=== PATIENT | female | born 1965 | race Caucasian/White ===

== ENCOUNTER 2019-05-03 08:38 | Day surgery (SDC) | payer OTHER ==
[2019-05-03 09:13] LABS: MPV 7.9 fL (7.6-11.3)
[2019-05-03 09:20] LABS: Protime INR 0.92
[2019-05-03 09:50] LABS: Platelet Estimate ADEQ
[2019-05-03] MEDS ORDERED: HYDROCODONE/APAP 7.5/325 MG TAB ONE (11:55)
--- NOTE | 2019-05-03 12:08 | RAD REPORT ---
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 FINDINGS: Bilateral scoliosis rods are in place. Superior aspect of the rods is at the T4 level. Alex s continue inferiorly to the L4-5 level. No hardware fracture. Patient has a left convex rotoscoliosi s of the lumbar spine. Bones appear osteopenic for the patient's age. Lumbar bodies are normal in height. L4 body shows 4-5 mm of anterior subluxation. L4-5 disc space is narrowed with degenerative gas in the disc space. No o ther subluxation. No additional lateral subluxation abnormalities. L5-S1 disc space is relatively nicole row though this can occur normally. The mid and upper lumbar disc levels are normal in height. No compression fracture. No lytic, sclerotic or expansile change. Heterotopic bone is present along t he mid and lower lumbar spine adjacent to the scoliosis alex fixation hooks. Prominent degenerative change present at the L5-S1 facet joints. Mild SI joint degenerative changes are present. On flexion imaging the L4 body does not appear to change positioning when compared to neutral. On ext ension imaging there is greater anterior subluxation of L4 measuring approximately 6- 7 mm. IMPRESSION: Left convex lumbar rotoscoliosis is present with Montalvo rods in place spanning upper thoracic spine to the L4-5 level. Significant L4-5 disc space narrowing with sclerotic changes to the endplates. In neutral positioning there is approximately 4-5 mm of anterior subluxation of L4. On flexion imaging L4 position is stable. On extension this subluxation increases to 6-7 mm. Bones appear osteopenic for age. Prominent degenerative change at the L5-S1 facet joints. Lumbar myelogram was performed at the same date and findings are separately detailed.
--- NOTE | 2019-05-03 12:58 | RAD REPORT ---
EXAM DESCRIPTION: CT - Myelogram C Spine - 05/03/2019 11:35 am CLINICAL HISTORY: Cervicalgia, neck pain, low back pain, bilateral lower extremity radiculopathy COMPARISON: Lumbar films same date TECHNIQUE: Patient presents for lumbar and cervical myelogram and CT imaging. The patient indicated no contraindicated medication and no drug allergy. The myelogram procedure, risks and alternatives were discussed with the patient in detail. After answ ering all questions both oral and written consent were obtained. The patient was placed in an oblique prone position on the fluoroscopic table. Preliminary imaging sh owed a left convex rotoscoliosis in the lumbar spine. Scoliosis rods are in place extending to the L4 -5 level. The patient was positioned to allow access to the thecal sac. Skin was prepped and draped in the usual sterile fashion. Skin and deeper tissues were anesthetized w ith 1% lidocaine. Under fluoroscopic guidance a 22 gauge spinal needle was advanced into the thecal s ac at the L3 level. Intrathecal placement was confirmed. Approximately 10 mL of Isovue-M 200 contrast material was instilled in the thecal sac. The needle was withdrawn and a sterile bandage placed to t he puncture site. Multiple lumbar myelogram images were obtained. The patient was transferred to the CT suite for pending imaging of the lumbar and cervical spine. Jeffrey ndelenburg positioning utilized to transfer the contrast from the lumbar spine to the cervical spine. The lumbar myelogram imaging findings are incorporated into the CT lumbar spine report. Exam was completed without complication. The patient indicated she was in diffuse pain which was not substantially different from her baseline pain pattern. The patient will be monitored in same-day [facility] after completion of the CT imaging. Fluoro time was 5.3 minutes. There were 7 fluoroscopic spot images obtained. Four additional fluoroscopic screening images were re tained. IMPRESSION: 1. Lumbar myelogram procedure was performed as detailed. There were no immediate complic ations. 2. The patient was transferred to the CT suite for cross-sectional imaging of the lumbar and cervical spine. The patient will be monitored in the same day surgical area after completion of a CT imaging. 3. Lumbar myelogram images were obtained and findings are incorporated in the lumbar spine report. No cervical myelogram fluoroscopic images obtained.
--- NOTE | 2019-05-03 14:35 | RAD REPORT ---
EXAM DESCRIPTION: RAD - Myelography Lumbar CLINICAL HISTORY: Cervicalgia, neck pain, low back pain, bilateral lower extremity radiculopathy COMPARISON: Lumbar films same date TECHNIQUE: Patient presents for lumbar and cervical myelogram and CT imaging. The patient indicated no contraindicated medication and no drug allergy. The myelogram procedure, risks and alternatives were discussed with the patient in detail. After answering all questions both oral and written consent were obtained. The patient was placed in an oblique prone position on the fluoroscopic table. Preliminary imaging showed a left convex rotoscoliosis in the lumbar spine. Scoliosis rods are in place extending to the L4-5 level. The patient was positioned to allow access to the thecal sac. Skin was prepped and draped in the usual sterile fashion. Skin and deeper tissues were anesthetized with 1% lidocaine. Under fluoroscopic guidance a 22 gauge spinal needle was advanced into the thecal sac at the L3 level. Intrathecal placement was confirmed. Approximately 10 mL of Isovue-M 200 contrast material was instilled in the thecal sac. The needle was withdrawn and a sterile bandage placed to the puncture site. Multiple lumbar myelogram images were obtained. The patient was transferred to the CT suite for pending imaging of the lumbar and cervical spine. Trendelenburg positioning utilized to transfer the contrast from the lumbar spine to the cervical spine. The lumbar myelogram imaging findings are incorporated into the CT lumbar spine report. Exam was completed without complication. The patient indicated she was in diffuse pain which was not substantially different from her baseline pain pattern. The patient will be monitored in same-day surgery after completion of the CT imaging. Fluoro time was 5.3 minutes. There were 7 fluoroscopic spot images obtained. Four additional fluoroscopic screening images were retained. IMPRESSION: 1. Lumbar myelogram procedure was performed as detailed. There were no immediate complications. 2. The patient was transferred to the CT suite for cross-sectional imaging of the lumbar and cervical spine. The patient will be monitored in the same day surgical area after completion of a CT imaging. 3. Lumbar myelogram images were obtained and findings are incorporated in the lumbar spine report. No cervical myelogram fluoroscopic images obtained.
--- NOTE | 2019-05-04 13:31 | RAD REPORT ---
EXAM DESCRIPTION: CT - Spine Lumbar Wo Con - 05/03/2019 11:58 am CLINICAL HISTORY: Back pain, scoliosis fixed with rosa placement, bilateral lower extremity radiculop athy COMPARISON: Lumbar plain films same date, myelogram images same date TECHNIQUE: Thin section axial 2 mm thick imaging of the lumbar spine was performed. Sagittal and co dorinda reconstruction images were generated and reviewed. Angled axial images were obtained through ea ch disc level using O-mar metal artifact reducing technique. All CT scans are performed using dose optimization technique as appropriate and may include automated exposure control or mA/KV adjustment according to patient size. FINDINGS: Lumbar bodies are normal in height. No compression fracture. No pathologic bone process se en. T12- L3 bodies are osteopenic. The patient has significant left convex scoliotic curvature with t he apex at L1. The patient has scoliosis rods in place along the entire length of the lower thoracic spine and lumbar spine to the L4 level. No hardware fracture. There is heterotopic bone and fusion ch anges along the posterior elements and facet joints. There is some mineralization along the periphery of the disc spaces from T11-12 through L2-3 at least partially fusing these disc levels. Conus terminates at the inferior aspect of T12. No clumping or thickening of the cauda equina identif ied. No arachnoiditis findings suspected. T11-12: No significant finding. T12-L1: No significant finding L1-2 level: No significant finding L2-3 level: No significant finding L3-4 level: No loss in disc height. No herniation or significant disc bulge. This level does not have the same degree of mineralization seen more superiorly. Facet joint and posterior element hypertroph y and fusion changes are present at this level. No canal or foramen stenosis. L4-5 level: Near complete loss in disc height at this level with degenerative gas in the disc space. Numerous degenerative cystic changes are present deep to the endplates. There is approximately 6 mm o f anterior subluxation of L4 relative to L5. Severe facet joint degenerative change present at this l evel without the bony union seen more superiorly. Ligamentous thickening changes are present. Pseudo bulging of disc material is present across the disc space. Critical foraminal stenosis is not seen. T here is near complete effacement of the thecal sac with near complete loss of the contrast column. Ce ntral spinal stenosis down to 5-6 mm noted. L5-S1. No central spinal stenosis or significant foraminal stenosis seen. There is significant degene rative disc disease with substantial loss in height and prominent endplate degenerative change. Left foraminal endplate spurring changes are present. Midline canal diameter is 7-8 mm. IMPRESSION: 1. Severe degenerative changes at the L4-5 level as detailed. There is critical central spinal stenosis down to 5-6 mm from pseudo bulging of disc material posterior ligamentous thickening and very advanced common non fused facet joint hypertrophic degenerative change. 2. Advanced L5-S1 degenerative disc disease with central spinal stenosis to 7-8 mm. 3. The remaining lumbar levels show no significant finding. No canal or foramen stenosis. 4. Scoliosis rods than the lumbar spine down to the L4 level. Hypertrophic bone changes and facet killian nt fusion changes are present from the scoliosis hardware spanning down to the L3-4 disc level. 5. No arachnoiditis findings.
--- NOTE | 2019-05-05 09:00 | RAD REPORT ---
EXAM DESCRIPTION: CT - Myelogram C Spine - 05/04/2019 7:12 am CLINICAL HISTORY: Cervicalgia, lower extremity weakness, upper extremity radiculopathy COMPARISON: Cervical spine plain films April 2017 TECHNIQUE: Axial 2 millimeter thick images of the cervical spine were obtained. Sagittal and coronal reformatted images were generated and reviewed. Intrathecal contrast material was placed via lumbar myelogram procedure. Patient had a concurrent lumbar myelogram and postmyelogram lumbar CT study. Tho se examinations are separately reported. The CT scan was performed using dose optimization techniques as appropriate to a performed exam incl uding one or more of the following: Automated exposure control, adjustment of the mA and/or kV accord ing to patient size (this includes techniques or standardized protocols for targeted exams where dose is matched to indication/reason for exam) and use of iterative reconstruction technique. FINDINGS: Cervical bodies are normal in height and alignment. No fracture or acute vertebral body fi nding. C4-5 disc space narrowing present. Disc findings are subsequently detailed. There is no tonsil lar ectopia present. No acute or suspicious finding at the skullbase or C1 level. Patient has minimal degenerative changes and spurring along the superior margin anterior arch C1. Soft tissue assessment is limited on this examination. Patient has a large jugular vein on the right. No right-sided thyroid tissue is identifiable. Focal metallic density in the right thyroid bed may b e surgical clips. Right submandibular gland is atrophic or absent. Parotid glands are also atrophic o r mostly fatty replaced. C2-3 level: Minimal bulging of disc material in the midline or mild thickening of the posterior longi tudinal ligament. This partially attenuates the anterior subarachnoid space but does not contact the cord. Midline canal diameter is 12 mm. No foraminal encroachment. C3-4 level: No herniation or significant disc bulge. Partial attenuation of the anterior subarachnoid space noted from posterior longitudinal ligament thickening or possibly minimal disc bulge. No conta ct of the cord. Midline canal diameter is 12 mm. No foraminal encroachment. C4-5 level: Disc bulge is present across the central canal. This disc bulge is partially calcified. A nterior subarachnoid space is partially attenuated. No flattening of the cord. Midline canal diameter is 12 mm. No significant foraminal encroachment. Mild facet degenerative change noted on the left. C5-6 level: Mild disc bulge or posterior longitudinal ligament thickening seen partially attenuating the anterior subarachnoid space. No flattening of the cord. Midline canal diameter is 13 mm. No signi ficant foraminal encroachment identifiable. No significant facet degenerative change. C6-7 level: No herniation or significant disc bulge. Midline canal diameter is [address] enosis. C7-T1 level: No significant finding. IMPRESSION: No disc herniation is present. There is no central spinal stenosis or foraminal encroach ment identifiable. Patient has partially calcified disc bulge at C4-5 only partially attenuating the anterior subarachno id space. This does not contact or flatten the cord. Several levels show either very minimal disc bulge or posterior longitudinal ligament thickening. The se changes result in partial attenuation of the subarachnoid space anteriorly but no contact or zahraa ening of the cord and no spinal stenosis. The right thyroid lobe appears to be absent in the patient has a large right jugular vein is a normal variant. Right submandibular gland also appears to be absent or atrophic with bilateral atrophic or fatty infiltrated parotid glands. CT cervical spine examination does not provide for optimal CT soft tissue neck assessment.
== END 2019-05-03 14:10 | disposition home or self-care (01) ==
LOC: DS 08:38
PROVIDERS: ATTEND Orthopaedic Surgery
DX: M54.12 Radiculopathy, cervical region (principal); M43.16 Spondylolisthesis, lumbar region
CPT/HCPCS: 36415; 62302; 62304; 72114; 72126; 72131; 85049; 85610; 85730

== ENCOUNTER 2022-03-08 16:26 | Observation (INO) | payer OTHER ==
--- OUTSIDE RECORDS SUMMARY | 2022-03-08 16:28 | XMS REPORT | Continuity of Care Document ---
:1965 Author Organization [facility] t Address [address] [place] [address] [place] [id number] Care Team Providers Name Role Phone BRIANNE Primary Care Physician Unavailable GABINO HALL Attending Clinician Unavailable Payers Payer Name Policy Type Policy Number Effective Date Expiration Date Pratik PETERS O [id number] 2000 00:00:00 Problems This patient has no known problems. Allergies, Adverse Reactions, Alerts This patient has no known allergies or adverse reactions. Medications This patient has no known medications. Vital Signs Vital Name Observation Time Observation Value Comments Source HEIGHT 2021-03-09 15:34:26 159 cm WEIGHT 2021-03-09 15:34:26 60.6 kg Procedures This patient has no known procedures. Encounters Start End Encounter Admission Attending Care Care Encounter Source Date/Time Date/Time Type Type Clinicians Facility Department ID 2021-03-09 2021-03-09 Outpatient CYNDIE BELCHER [facility], [facility] [id number] 14:26:02 23:59:00 Gerardo o agnes 2021-03-09 2021-03-09 Outpatient CYNDIE BELCHER [facility], [facility] [id number] 15:14:38 15:49:06 Gerardo o agnes 2021-03-09 2021-03-09 Outpatient CYNDIE BELCHER [facility], MDA [id number] 13:30:00 14:25:00 Gerardo o agnes 2021-03-05 2021-03-05 Outpatient CYNDIE BELCHER [facility], MDA [id number] 16:27:51 16:27:51 Gerardo o agnes 2021-03-05 2021-03-05 Outpatient CYNDIE BELCHER [facility], MDA [id number] 16:00:26 16:00:26 Gerardo o n Results This patient has no known results.
[2022-03-08] MEDS ORDERED: ASPIRIN 81 MG CHEWABLE TABLET ONE (17:27)
[2022-03-08 17:30] LABS: Absolute Lymphocytes (CBC) 2.1 K/uL (0.7-4.9); Hematocrit 40.8 % (36.0-45.0); MPV 7.1 fL (7.6-11.3); RBC Red Blood Cell Count 4.56 M/uL (3.86-4.86)
[2022-03-08 17:31] LABS: Protime INR 0.96
[2022-03-08 17:52] LABS: Albumin 4.4 g/dL (3.4-5.0); Bilirubin Direct 0.1 mg/dL (0-0.2); Bilirubin Total 0.5 mg/dL (0.2-1.0); Magnesium 2.7 mg/dL (1.8-2.4); Potassium 3.6 mmol/L (3.5-5.1); Protein, Total 8.1 g/dL (6.4-8.2); Troponin High Sensitivity 12.4 pg/mL (<58.9)
--- NOTE | 2022-03-08 17:54 | RAD REPORT ---
EXAM DESCRIPTION: RAD - Chest Single View - 03/08/2022 5:31 pm CLINICAL HISTORY: CHEST PAIN COMPARISON: Portable 10/18/2009 TECHNIQUE: AP portable chest image was obtained 03/08/2022 5:31 pm . FINDINGS: Lungs are clear. Heart and vasculature are normal. No measurable pleural effusion and no p neumothorax. No acute bone finding. Scoliosis rods are in place. No acute aortic findings suspected. IMPRESSION: No acute cardiopulmonary process. No significant change from comparison study.
--- NOTE | 2022-03-08 19:19 | ER ---
Nurse's Notes [facility] Name: Alona Fermin Age: 56 yrs Sex: Female : 1965 Arrival Date: 03/08/2022 Time: 16:27 Bed 18 Private MD: Josselyn Reddy C Diagnosis: Chest pain, unspecified Presentation: 03/08 16:37 Chief complaint: Patient states: Upper left chest pressure, left jaw pain, nausea, ld1 dizziness X 3 days. Coronavirus screen: At this time, the client does not indicate any symptoms associated with coronavirus-19. Ebola Screen: No symptoms or risks identified at this time. Initial Sepsis Screen: Does the patient meet any 2 criteria? No. Patient's initial sepsis screen is negative. Does the patient have a suspected source of infection? No. Patient's initial sepsis screen is negative. Risk Assessment: Do you want to hurt yourself or someone else? Patient reports no desire to harm self or others. Onset of symptoms was March 08, 2022. 16:37 Method Of Arrival: Ambulatory ld1 16:37 Acuity: KRYSTA 3 ld1 Triage Assessment: 16:38 General: Appears in no apparent distress. comfortable, Behavior is calm, cooperative, ld1 appropriate for age. Pain: Complains of pain in chest Pain does not radiate. Pain currently is 6 out of 10 on a pain scale. EENT: No signs and/or symptoms were reported regarding the EENT system. Neuro: Level of Consciousness is awake, alert, obeys commands, Oriented to person, place, time, situation. Cardiovascular: Capillary refill < 3 seconds Patient's skin is warm and dry. Respiratory: Airway is patent Respiratory effort is even, unlabored. GI: Abdomen is flat, non-distended. GI: Reports nausea. : No signs and/or symptoms were reported regarding the genitourinary system. Derm: No signs and/or symptoms reported regarding the dermatologic system. Musculoskeletal: No signs and/or symptoms reported regarding the musculoskeletal system. NUCLEAR MEDICINE PHYSICIAN: 16:38 LMP N/A - Post-menopause ld1 Historical: - Allergies: 16:38 No Known Allergies; ld1 - Home Meds: 16:38 None [Active]; ld1 - PMHx: 16:38 None; ld1 - PSHx: 16:38 Appendectomy; ld1 - Immunization history:: Adult Immunizations up to date, Client reports receiving the 2nd dose of the Covid vaccine. - Social history:: Smoking status: Patient denies any tobacco usage or history of. Patient/guardian denies using alcohol. Screenin:55 Abuse screen: Denies threats or abuse. Denies injuries from another. Nutritional ld1 screening: No deficits noted. Tuberculosis screening: No symptoms or risk factors identified. Fall Risk None identified. Assessment: 18:54 General: Appears in no apparent distress. comfortable. Neuro: Level of Consciousness is ld1 awake, alert, obeys commands, Oriented to person, place, time, situation, Moves all extremities. Gait is steady, Speech is normal. Respiratory: Airway is patent Respiratory effort is even, unlabored, Respiratory pattern is regular, symmetrical. 19:48 Reassessment: Patient and/or family updated on plan of care and expected duration. Pain ag7 level reassessed. Patient is alert, oriented x 3, equal unlabored respirations, skin warm/dry/pink. Pain: Complains of pain in anterior aspect of left upper chest Pain radiates to left arm Pain currently is 4 out of 10 on a pain scale. Quality of pain is described as uncomfortable Pain began suddenly, Is continuous, Alleviated by nothing. 22:00 Reassessment: Patient and/or family updated on plan of care and expected duration. Pain ag7 level reassessed. Patient is alert, oriented x 3, equal unlabored respirations, skin warm/dry/pink. Patient denies pain at this time. Patient states feeling better. Patient states symptoms have improved. Vital Signs: 16:37 BP 159 / 93; Pulse 73; Resp 20; Temp 98.6(TE); Pulse Ox 99% on R/A; Weight 58.97 kg; ld1 Height 5 ft. 3 in. (160.02 cm); Pain 6/10; 19:00 BP 130 / 69; Pulse 61; Resp 20 S; Temp 99.4(O); Pulse Ox 99% on R/A; Pain 4/10; ag7 20:00 BP 154 / 131; Pulse 61; Resp 14 S; Pulse Ox 98% on R/A; Pain 4/10; ag7 21:00 BP 143 / 77; Pulse 66; Resp 20; Pulse Ox 100% ; Pain 0/10; ag7 22:00 BP 139 / 65; Pulse 59; Resp 20; Pulse Ox 100% ; Pain 0/10; ag7 16:37 Body Mass Index 23.03 (58.97 kg, 160.02 cm) ld1 ED Course: 16:27 Patient arrived in ED. as 16:27 Josselyn Reddy MD is Private Physician. as 16:37 Amanda Roland FNP is [facility]. 7 16:37 Dayron Agosto MD is Attending Physician. 7 16:38 Triage completed. ld1 16:38 Arm band placed on right wrist. ld1 17:19 Inserted saline lock: 20 gauge in right antecubital area, using aseptic technique. ld1 Blood collected. 17:33 XRAY Chest (1 view) In Process Unspecified. EDMS 18:55 Patient has correct armband on for positive identification. Bed in low position. Call ld1 light in reach. Side rails up X 1. Client placed on continuous cardiac and pulse oximetry monitoring. NIBP monitoring applied. 19:17 Josselyn Reddy MD is Hospitalizing Provider. [facility] 19:47 Amy Tracey, FOX is Primary Nurse. ag7 19:57 COVID-19 SARS RT PCR (Document "Date of Onset" if Symptomatic) Sent. ag7 22:24 No provider procedures requiring assistance completed. Patient admitted, IV remains in ag7 place. Patient maintains SpO2 saturation greater than 95% on room air. Administered Medications: 17:22 Drug: Aspirin Chewable Tablet 324 mg Route: PO; ld1 19:57 Drug: Lovenox (enoxaparin) 40 mg Route: Sub-Q; Site: right lower abdomen; ag7 20:30 Follow up: Response: No adverse reaction ag7 19:57 Drug: Metoprolol 25 mg Route: PO; ag7 20:30 Follow up: Response: No adverse reaction [facility] Medication: 22:25 VIS not applicable for this client. 7 Outcome: 19:18 Decision to Hospitalize by Provider. [facility] 22:25 Admitted to Med/surg room 412, Report called to Jemima BRAXTON 1005 ag7 22:26 Condition: stable ag7 22:47 Patient left the ED. [facility] Signatures: Dispatcher [employer] EDMS Wendie Moore Lauren, RN RN ld1 Amy Tracey, RN RN ag7 Amanda Roland FNP [employer] [email or web address] Corrections: (The following items were deleted from the chart) 16:38 16:38 PSHx: None; ld1 ld1 20:01 19:00 BP 130 / 69; Pulse 61bpm; Resp 20bpm; Spontaneous; Pulse Ox 99%; Pain 4/10; ag7 ag7
--- NOTE | 2022-03-08 19:19 | EDPHYS ---
Physician Documentation [facility] Name: Alona Fermin Age: 56 yrs Sex: Female : 1965 Arrival Date: 03/08/2022 Time: 16:27 Bed 18 Private MD: Josselyn Reddy C ED Physician Dayron Agosto HPI: 03/08 16:40 This 56 yrs old Female presents to ER via Ambulatory with complaints of Chest Pressure, jh7 Palpitations. 16:40 Onset: The symptoms/episode began/occurred 3 day(s) ago, and became worse and became jh7 persistent. Associated signs and symptoms: Pertinent positives: Palpitations. Patient complains of chest pain and palpitations for the past 3 days. States that the pain has been radiating to her jaw and left shoulder starting today. States that she has a history of tachycardia. Reports a family history of cardiac issues.. 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 - Social history:: Smoking status: Patient denies any tobacco usage or history of. Patient/guardian denies using alcohol. ROS: 16:40 Constitutional: Negative for fever, chills, and weight loss, ENT: Negative for injury, jh7 pain, and discharge, Neck: Negative for injury, pain, and swelling, Respiratory: Negative for shortness of breath, cough, wheezing, and pleuritic chest pain, Abdomen/GI: Negative for abdominal pain, nausea, vomiting, diarrhea, and constipation, MS/Extremity: Negative for injury and deformity, Skin: Negative for injury, rash, and discoloration, Neuro: Negative for headache, weakness, numbness, tingling, and seizure. 16:40 Cardiovascular: Positive for chest pain, palpitations, Negative for orthopnea. 16:40 All other systems are negative. Exam: 16:40 Constitutional: This is a well developed, well nourished patient who is awake, alert, jh7 and in no acute distress. Neck: Trachea midline, no thyromegaly or masses palpated, and no cervical lymphadenopathy. Supple, full range of motion without nuchal rigidity, or vertebral point tenderness. No Meningismus. Chest/axilla: Normal chest wall appearance and motion. Nontender with no deformity. No lesions are appreciated. Cardiovascular: Regular rate and rhythm with a normal S1 and S2. No gallops, murmurs, or rubs. Normal PMI, no JVD. No pulse deficits. Respiratory: Lungs have equal breath sounds bilaterally, clear to auscultation and percussion. No rales, rhonchi or wheezes noted. No increased work of breathing, no retractions or nasal flaring. Abdomen/GI: Soft, non-tender, with normal bowel sounds. No distension or tympany. No guarding or rebound. No evidence of tenderness throughout. Back: No spinal tenderness. No costovertebral tenderness. Full range of motion. Skin: Warm, dry with normal turgor. Normal color with no rashes, no lesions, and no evidence of cellulitis. Neuro: Awake and alert, GCS 15, oriented to person, place, time, and situation. Motor strength 5/5 in all extremities. Sensory grossly intact. Normal gait. Vital Signs: 16:37 BP 159 / 93; Pulse 73; Resp 20; Temp 98.6(TE); Pulse Ox 99% on R/A; Weight 58.97 kg; ld1 Height 5 ft. 3 in. (160.02 cm); Pain 6/10; 19:00 BP 130 / 69; Pulse 61; Resp 20 S; Temp 99.4(O); Pulse Ox 99% on R/A; Pain 4/10; ag7 20:00 BP 154 / 131; Pulse 61; Resp 14 S; Pulse Ox 98% on R/A; Pain 4/10; ag7 21:00 BP 143 / 77; Pulse 66; Resp 20; Pulse Ox 100% ; Pain 0/10; ag7 22:00 BP 139 / 65; Pulse 59; Resp 20; Pulse Ox 100% ; Pain 0/10; ag7 16:37 Body Mass Index 23.03 (58.97 kg, 160.02 cm) ld1 MDM: 17:45 Patient medically screened. [facility] 19:15 Differential diagnosis: Acute ME, unstable angina. Data reviewed: vital signs, nurses jh7 notes, lab test result(s), EKG, radiologic studies, plain films. Data interpreted: Pulse oximetry: is 99 %. Interpretation: normal. Counseling: I had a detailed discussion with the patient and/or guardian regarding: the historical points, exam findings, and any diagnostic results supporting the discharge/admit diagnosis, the need for further work-up and treatment in the hospital. ED course: The patient's lab results were unremarkable. Informed the patient that although her labs were normal, there were some abnormalities on her EKG. due to her risk factors and EKG changes, the patient will be admitted for observation. Spoke to Dr. Reddy regarding admission. He requested for her to have a dose of metoprolol 25 mg p.o. and Lovenox 40 mg sub Q tonight, and then daily thereafter. Also requested cardiac enzymes every 8x3 total and cardiology consult.. 03/08 16:37 Order name: Basic Metabolic Panel; Complete Time: 18:11 [facility] 03/08 16:37 Order name: CBC with Diff; Complete Time: 18:11 [facility] 03/08 16:37 Order name: LFT's; Complete Time: 18:11 [facility] 03/08 16:37 Order name: Magnesium; Complete Time: 18:11 [facility] 03/08 16:37 Order name: NT PRO-BNP; Complete Time: 18:11 [facility] 03/08 16:37 Order name: PT-INR; Complete Time: 18:11 [facility] 03/08 16:37 Order name: Troponin HS; Complete Time: 18:11 [facility] 03/08 16:37 Order name: XRAY Chest (1 view); Complete Time: 18:11 [facility] 03/08 16:37 Order name: EKG; Complete Time: 16:38 [facility] 03/08 18:15 Order name: EKG; Complete Time: 18:16 [facility] 03/08 19:05 Order name: COVID-19 SARS RT PCR (Document "Date of Onset" if Symptomatic); Complete la1 Time: 21:03/08 16:37 Order name: Cardiac monitoring; Complete Time: 18:07 [facility] 03/08 16:37 Order name: EKG - Nurse/Tech; Complete Time: 16:39 [facility] 03/08 16:37 Order name: IV Saline Lock; Complete Time: 17:19 [facility] 03/08 16:37 Order name: Labs collected and sent; Complete Time: 17:19 [facility] 03/08 16:37 Order name: O2 Per Protocol; Complete Time: 18:07 [facility] 03/08 16:37 Order name: O2 Sat Monitoring; Complete Time: 18:07 [facility] 03/08 18:15 Order name: EKG - Nurse/Tech; Complete Time: 18:40 jd3 EC:40 Rate is 64 beats/min. Rhythm is regular. TX interval is normal. QRS interval is normal. [facility] QT interval is normal. T waves are Inverted in leads III, aVF. Clinical impression: NSR w/ Non-specific ST/T Changes. Administered Medications: 17:22 Drug: Aspirin Chewable Tablet 324 mg Route: PO; ld1 19:57 Drug: Lovenox (enoxaparin) 40 mg Route: Sub-Q; Site: right lower abdomen; ag7 20:30 Follow up: Response: No adverse reaction 7 19:57 Drug: Metoprolol 25 mg Route: PO; ag7 20:30 Follow up: Response: No adverse reaction [facility] Disposition Summary: 03/08/22 19:18 Hospitalization Ordered Hospitalization Status: Observation [facility] Provider: Josselyn Reddy Location: Telemetry/MedSurg (observation) [facility] Condition: Stable [facility] Problem: new [facility] Symptoms: are unchanged [facility] Bed/Room Type: Standard [facility] Room Assignment: [facility](03/08/22 20:54) Diagnosis - Chest pain, unspecified [facility] Forms: - Medication Reconciliation Form [facility] - SBAR form [facility] Signatures: Dispatcher [employer] EDDayron Du MD MD cha Garcia, Cindy, RN RN Camacho Vu RN RN jd3 Rosalie Malave RN RN ld1 Amy Tracey RN RN 7 Amanda Roland FNP FNP [facility] Corrections: (The following items were deleted from the chart) 16:38 16:38 PSHx: None; ld1 ld1 20:54 19:18 [facility]
[2022-03-08] MEDS ORDERED: METOPROLOL TAR 25 MG TAB ONE (19:58)
[2022-03-08] MEDS ORDERED: ENOXAPARIN 40 MG/0.4 ML SQ ONE (19:59)
[2022-03-08 23:20] VITALS: BMI 25.4
[2022-03-08] MEDS ORDERED: MORPHINE 2 MG/ML SYR IV PRN (23:44)
[2022-03-09 00:32] VITALS: O2SAT 100
[2022-03-09 03:49] LABS: Absolute Lymphocytes (CBC) 2.2 K/uL (0.7-4.9); Hematocrit 37.6 % (36.0-45.0); Lymphocytes % 38.4 % (15.3-44.8); MPV 7.6 fL (7.6-11.3)
[2022-03-09 04:09] LABS: CKMB Creatine Kinase MB 1.5 ng/mL (1.0-3.6)
[2022-03-09 04:13] LABS: Albumin 3.6 g/dL (3.4-5.0); Bilirubin Total 0.2 mg/dL (0.2-1.0); Potassium 3.6 mmol/L (3.5-5.1); Protein, Total 6.8 g/dL (6.4-8.2)
[2022-03-09] MEDS ORDERED: METOPROLOL TAR 25 MG TAB PO SCH (06:00)
[2022-03-09 06:55] LABS: Urine Appearance Clear (Clear); Urine Bilirubin Negative (Negative); Urine Blood Negative (Negative); Urine Color Yellow (Yellow); Urine Glucose Negative (Negative); Urine Protein Negative (Negative); Urine Urobilinogen 0.2 mg/dL (0.2-1.0); Urine pH 5.5 (5.0-7.0)
[2022-03-09 06:56] LABS: Urine Microscopic Reflex ORDER UMIC
[2022-03-09 07:08] LABS: Urine Bacteria <20 /HPF (<20); Urine RBC <5 /HPF (NONE SEEN)
[2022-03-09] MEDS ORDERED: ASPIRIN EC 81 MG TAB PO SCH (09:00)
[2022-03-09] MEDS ORDERED: ENOXAPARIN 40 MG/0.4 ML SQ SCH (09:00)
--- NOTE | 2022-03-09 09:12 | EKG ---
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
--- NOTE | 2022-03-09 09:12 | EKG ---
Test Date: 2022-03-08 Test Time: 18:38:16 Hot Man: TREVER MEASUREMENT RESULTS: Intervals: Rate: 63 ID: [id number] QRSD: 78 QT: 412 QTc: 421 [place]: P: 50 ID: [id number] QRS: 103 T: -4 INTERPRETIVE STATEMENTS: Normal sinus rhythm Rightward axis T wave abnormality, consider inferior ischemia Abnormal ECG Compared to ECG 03/08/2022 16:32:01 No significant changes Electronically Signed On 03-09-22 09:10:38 CDT by Antonio Young
[2022-03-09 09:21] VITALS: BP 98/61; TEMP 97.3
[2022-03-09 10:38] LABS: CKMB Creatine Kinase MB 1.2 ng/mL (1.0-3.6); Troponin High Sensitivity 15.9 pg/mL (<58.9)
--- NOTE | 2022-03-09 11:44 | CON ---
Date of Consultation: 03/09/2022 Reason For Consultation: Unstable angina. History Of Present Illness: Ms. Fermin is a 56-year-old white woman. She has a history of supravent ricular tachycardia in the past. Has a strong family history of heart disease. Came in with subster nal chest pressure, radiating to her jaw and her left arm with some diaphoresis, shortness of breath. Denied any nausea or vomiting. Denied any PND, orthopnea, pedal edema. She had palpitation. No s yncope. Symptoms were exertional and nonexertional and lasted about 2 hours. In the emergency room, she ruled out for an ME. EKG showed nonspecific changes. Chest x-ray was negative. Symptoms are r elieved when she came to the emergency room with morphine and nitroglycerin. Past Medical History: As stated above. Allergies: NONE. Review of Systems: Negative. Social History: Negative. Family History: Positive for heart disease in her father and grandfather and uncle. Medications: At home are none. Physical Examination: Vital Signs: Stable. She was afebrile. HEENT: Negative. Neck: Supple with no bruit. Chest: Clear. Cardiac: Revealed a regular rhythm and rate. No murmurs, gallops, or rubs. Abdomen: Benign. Extremities: Revealed no clubbing, cyanosis, or edema. Diagnostic Data: As stated earlier. Impression And Plan: Unstable angina with substernal chest pressure radiating to the left arm and le ft jaw with exertion with diaphoresis and shortness of breath that lasted 2 hours. The patient has a strong family history. EKG is nonspecific. I feel uncomfortable with her having a stress test. I think she needs to have a left heart catheterization to define her coronary anatomy and proceed with plans according to the findings. The patient understands the risk and the benefits of the procedure and agrees to proceed. I feel comfortable with her going home on a baby aspirin and a beta-joo, which will help control her palpitation and hopefully be cardioprotective until we do a heart cathete rization in the near future. The case was discussed with Dr. Reddy. At one point, she had supraventr icular tachycardia years ago and has recommended an ablation or beta-joo or observation and she e lected to observe that at that one point and it has not recurred until recently. STEPHEN/MARGOT Voice ID: [id number] Report ID: [id number]
== END 2022-03-09 11:50 | disposition home or self-care (01) ==
LOC: ER 16:26 → ERHOLD 19:40 → 4TH 22:15
PROVIDERS: ADMIT Internal Medicine; ATTEND Internal Medicine
DX: I20.0 Unstable angina (principal); I47.1 Supraventricular tachycardia; R06.02 Shortness of breath; Z20.822 Contact with and (suspected) exposure to COVID-19; Z82.49 Family history of ischemic heart disease and other diseases of the circulatory system
CPT/HCPCS: 93005 ×2; 87088; 85025 ×2; 87086; 80048; 36415; 83735; 85610; 80061; 80076; 87077; 87186; 84484 ×3; 82553 ×2; 80053; 83880; 71045; 96372; 99285; U0003; J1650 ×2; G0378 ×2; 81003; 81015

== ENCOUNTER 2022-03-12 06:55 | Day surgery (SDC) | payer OTHER ==
[~2022-03-12 06:55] MED LIST: ATROPINE SULF 1 MG/10 ML SYR IV ONE; FENTANYL CITR 100 MCG/2 ML ONE; MIDAZOLAM HCL 2 MG/2 ML INJ ONE; NA CHLORIDE 0.9% 0 ML ONE; NITROGLYCERIN 100 MCG/ML SYR (for cath lab use only) IV ONE; NITROGLYCERIN/D5W 25 MG/250 ML BTL IV ONE
[2022-03-12] MEDS ORDERED: NA CHLORIDE 0.9% 500 ML ONE (07:05)
[2022-03-12 10:17] VITALS: BP 121/61; O2SAT 98
--- NOTE | 2022-03-12 14:50 | OP ---
Date of Procedure: 03/11/2022 Surgeon: Antonio Young MD Supervisor Insulation: Ms. Moira Cordero. Procedures: Left heart catheterization, selective coronary arteriogram, and common femoral artery an giogram. Indication: Ms. Fermin is 56 years old, multiple cardiac risk factors, classic symptoms for unstable angina. Admitted to the hospital over the weekend with unstable angina. Discharged and set up for a heart catheterization today as an outpatient. 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 Given Versed and fentanyl and sedation. A 6-Japanese sheath introduced in the right common femora l artery. Angiography there was normal. Angio-Seal was used to close the case. Hieu catheter 6- Japanese left and right were used to cannulate the left main and right main respectively. Her coronari es were normal. There were no focal stenoses. She was right dominant. There were no complications. Blood loss was 5 mL. Postoperative Diagnosis: Unstable angina with normal heart catheterization. Plan: Medical therapy. The patient can go home in 2 hours after bedrest. She will follow up with jenna piña in the office in 2 weeks. Anesthesia: Total conscious sedation 30 minutes. NB/MODL Voice ID: [id number] Report ID: [id number]
--- NOTE | 2022-03-12 14:50 | SS ---
Date of Discharge: 03/12/2022 Chief Complaint: Chest pain. History Of Present Illness: This is a 56-year-old very pleasant female patient, who has prior histor y of supraventricular tachycardia, was doing fine in her normal usual state of health until last few days. She is having some chest pain that she describes as tightness, heaviness, pressure type of fee ling in her chest, radiating to her neck and left arm. She has had some associated shortness of brennan th with this feeling. She came into emergency room with this. These symptoms were nonexertional. A fter she was evaluated in the ER, she was admitted to the hospital. She has not had any recurrence o f chest pain after she came to emergency room. 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 Young. Allergies: NO KNOWN ALLERGIES. Medications: Albuterol inhaler as needed. Review of Systems: Cardiovascular: As mentioned above. Musculoskeletal: Chronic back pain. All other systems reviewed and negative. Past Medical History: Significant for asthma, supraventricular tachycardia, and scoliosis, COVID-19 infection. Past Surgical History: Tonsillectomy, thyroidectomy, appendectomy, and back surgery. Family History: Father; coronary artery disease and hypertension. Mother; osteoporosis, hyperlipide milind, rheumatoid arthritis, TIA, mitral valve prolapse. Brother with COPD and gastroesophageal reflux disease. Social History: Negative for smoking and alcohol use. Physical Examination: Initial Vital Signs: Temperature 98.6, pulse 73, respiratory rate 20, blood pressure 159/93, oxygen saturation 99%. Height 5 feet 2 inches, weight 139 pounds. General: Awake, alert, oriented, not in distress. HEENT: Head atraumatic, normocephalic. Conjunctivae nonerythematous. Sclerae white. Mouth, no thr ush or edema noted. Ears/Nose, no mass, lesion, discharge noted. Neck: Supple. No JVD, lymph nodes, bruit, thyromegaly noted. Lungs: Bilateral good equal air entry. Clear to auscultation. No rhonchi. No rales. Heart: Normal heart sounds, no murmur or gallop. Abdomen: Soft, bowel sounds normal. No guarding, rigidity, tenderness, mass, hepatosplenomegaly, dis tention, or bruit noted. Extremities: No leg edema. No calf tenderness. Skin: No rash, ulcer, cellulitis. Lymphatics: No lymph node enlargement in neck, supraclavicular, infraclavicular region. Neuro: No focal neurological deficit. Chest: Unremarkable. External Genitalia: Deferred. Rectal: Deferred. Laboratory Data: Yesterday; white count 6.2, hemoglobin 13.3, platelets 401. This morning; white co unt 5.8, hemoglobin 12.4, platelets 340. Yesterday; sodium 138, potassium 3.6, chloride 104, bicarb 28, BUN 12, creatinine 0.73, glucose 98. Liver function tests unremarkable. This morning; sodium 14 0, potassium 3.6, chloride 108, bicarb 25, BUN 17, creatinine 0.64, glucose 95. Liver function tests unremarkable. Lipid profile ordered to be done this morning, result pending. Troponin; first tropo rebekah 12.4, second 12, and third one is 15.9. COVID-19 is negative. Urinalysis unremarkable. Chest x -ray, no acute cardiopulmonary changes. EKG; normal sinus rhythm, possible left atrial enlargement, right axis deviation, T-wave abnormality considered inferior ischemia. Hospital Course: After the patient was evaluated in the emergency room, she was admitted to the hosp ital. Aspirin and metoprolol were started yesterday and Cardiology consultation was requested. Dr. Young saw her from Cardiology Service this morning and he has recommended for the patient to have a cardiac cath procedure to be done on outpatient basis, which he will plan to do it next week and fro m his point of view, the patient can go home. Medically, she is stable for discharge and the patient is agreeable to undergo cardiac cath procedure as recommended by Dr. Young next week. Meanwhile, Dr. Young has recommended for her to go home with metoprolol and aspirin. I have also instructed h er to avoid any strenuous activity until we complete our cardiac workup. Discharge Medications And Instructions: 1.Continue prior home medication which is albuterol inhaler as needed and take aspirin 81 mg daily w ith food. 2.Take metoprolol succinate 25 mg, take 1 tablet by mouth daily in morning. 3.Follow up at my office next week on , which is in March 14, 2022 and the patient will call for appointment. Final Diagnoses: 1.Chest pain. 2.Supraventricular tachycardia. 3.Asthma. 4.Scoliosis. ZENON/MODL Voice ID: [id number] Report ID: [id number]
== END 2022-03-12 10:02 | disposition home or self-care (01) ==
LOC: CCL 06:55
DX: I20.0 Unstable angina (principal); I47.1 Supraventricular tachycardia; J45.909 Unspecified asthma, uncomplicated; R06.02 Shortness of breath; M41.9 Scoliosis, unspecified; E89.0 Postprocedural hypothyroidism; G89.29 Other chronic pain; M54.9 Dorsalgia, unspecified; Z20.822 Contact with and (suspected) exposure to COVID-19; Z86.16 Personal history of COVID-19; Z82.49 Family history of ischemic heart disease and other diseases of the circulatory system; Z82.62 Family history of osteoporosis; Z82.61 Family history of arthritis
CPT/HCPCS: 93454; C1893; Q9966; C1760; G0269; J2250; J3010; J7040; J0583